=== PATIENT | female | born 1955 | race Caucasian/White ===

== ENCOUNTER → 2019-02-17 | Outpatient (CLI) | payer MEDICARE, MEDICAID ==
[~2019-02-17] MED LIST: ESOMEPRAZOLE MA40 M1 PO; FLUOXETINE HCL20 MG PO; MACROBID 100 M100 MG PO; MAXZIDE-25MG TA1 TAB PO
== END ==
LOC: MAMMO 10:22
DX: Z12.31 Encounter for screening mammogram for malignant neoplasm of breast (principal)

== ENCOUNTER → 2019-03-12 | Outpatient (CLI) | payer MEDICARE, MEDICAID ==
[2019-02-18 14:06] VITALS: BP 127/63
== END ==
LOC: RAD 09:59
DX: R16.1 Splenomegaly, not elsewhere classified (principal); R10.13 Epigastric pain

== ENCOUNTER → 2019-03-24 | Outpatient (CLI) | payer MEDICARE, MEDICAID ==
[2019-02-18 14:06] VITALS: BP 127/63
[2019-03-24 11:11] LABS: EOS # 0.1 (0.04-0.40); EOS % 0.8 % (1.0-5.0); HEMATOCRIT 47.7 % (37.0-47.0); HEMOGLOBIN 15.6 g/dL (12.5-16.0); LYMPH# 1.6 (1.50-4.00); MEAN CELL VOLUME 89 fl (78-100); MEAN CORPUSCULAR HEMOGLOBIN 29 pg (27-31); MEAN CORPUSCULAR HGB CONC 33 g/dL (33-37); MONO # 0.5 (0.20-0.80); NEU # 6.2 (1.40-6.50); PLATELET COUNT 142 K/mm3 (130-400); RED BLOOD COUNT 5.36 M/mm3 (4.10-5.30); RED CELL DISTRIBUTION WIDTH 16.2 % (11.5-14.5); WHITE BLOOD COUNT 8.5 K/mm3 (4.8-10.8)
[2019-03-24 11:23] LABS: ALBUMIN 3.6 g/dL (3.4-4.8)
[2019-03-24 11:24] LABS: CALCIUM 9.5 mg/dL (8.3-10.5)
[2019-03-24 11:25] LABS: TOTAL PROTEIN 9.1 g/dL (6.2-8.1)
[2019-03-24 11:27] LABS: TOTAL BILIRUBIN 0.6 mg/dL (0.2-1.2)
== END ==
LOC: LAB 10:55
DX: K21.9 Gastro-esophageal reflux disease without esophagitis (principal); D64.9 Anemia, unspecified; R10.13 Epigastric pain

== ENCOUNTER → 2019-04-02 | Day surgery (SDC) | payer MEDICARE, MEDICAID ==
[2019-02-18 14:06] VITALS: BP 127/63
== END | disposition home or self-care (01) ==
LOC: MSO 08:12
DX: K21.9 Gastro-esophageal reflux disease without esophagitis (principal); K44.9 Diaphragmatic hernia without obstruction or gangrene; R10.13 Epigastric pain; K63.5 Polyp of colon; J44.9 Chronic obstructive pulmonary disease, unspecified; F17.210 Nicotine dependence, cigarettes, uncomplicated; F41.9 Anxiety disorder, unspecified; Z90.49 Acquired absence of other specified parts of digestive tract; Z90.710 Acquired absence of both cervix and uterus; Z83.71 Family history of colonic polyps
CPT/HCPCS: 00813; J2704; J7120

== ENCOUNTER → 2019-12-25 | Outpatient (CLI) | payer MEDICARE, MEDICAID ==
[2019-02-18 14:06] VITALS: BP 127/63
== END ==
LOC: RAD 08:41
DX: I70.0 Atherosclerosis of aorta (principal); R10.12 Left upper quadrant pain
CPT/HCPCS: Q9965; Q9967

== ENCOUNTER → 2020-05-12 | Day surgery (SDC) | payer MEDICARE, MEDICAID ==
[2019-02-18 14:06] VITALS: BP 127/63
== END ==
LOC: MSO 03-31 10:30
DX: K22.70 Barrett's esophagus without dysplasia (principal); K21.9 Gastro-esophageal reflux disease without esophagitis; K44.9 Diaphragmatic hernia without obstruction or gangrene; F17.210 Nicotine dependence, cigarettes, uncomplicated; Z90.710 Acquired absence of both cervix and uterus
CPT/HCPCS: 00731; J2704; J7120

== ENCOUNTER 2020-12-17 12:55 | Emergency (ER) | payer MEDICARE, MEDICAID ==
[2020-12-17] MEDS ORDERED: GABAPENTIN100 MG PO (13:10)
[2020-12-17] MEDS ORDERED: ATORVASTATIN CA20 MG PO (13:10)
[2020-12-17] MEDS ORDERED: SUCRALFATE1 G1 PO (13:10)
[2020-12-17] MEDS ORDERED: DULOXETINE60 MG PO (13:11)
[2020-12-17] MEDS ORDERED: PROBIOTIC1 EAC1 PO (13:12)
[2020-12-17 14:06] LABS: BASO # 0.03 (0.02-0.10); EOS # 0.06 (0.04-0.40); EOS % 0.9 % (1.0-5.0); HEMATOCRIT 43.6 % (37.0-47.0); HEMOGLOBIN 14.2 g/dL (12.5-16.0); LYMPH# 1.55 (1.50-4.00); MEAN CELL VOLUME 86 fl (78-100); MEAN CORPUSCULAR HEMOGLOBIN 28 pg (27-31); MEAN CORPUSCULAR HGB CONC 33 g/dL (33-37); MEAN PLATELET VOLUME 10.8 fl (7.4-10.4); MONO # 0.38 (0.20-0.80); NEU # 4.36 (1.40-6.50); PLATELET COUNT 129 K/mm3 (130-400); RED BLOOD COUNT 5.07 M/mm3 (4.10-5.30); RED CELL DISTRIBUTION WIDTH 14.6 % (11.5-14.5); WHITE BLOOD COUNT 6.4 K/mm3 (4.8-10.8)
[2020-12-17 14:07] LABS: ALBUMIN 3.5 g/dL (3.4-4.8)
[2020-12-17 14:08] LABS: POTASSIUM 3.9 mmol/L (3.5-5.1); SODIUM 138 mmol/L (136-145)
[2020-12-17 14:09] LABS: CALCIUM 8.8 mg/dL (8.3-10.5)
[2020-12-17 14:10] LABS: GLUCOSE 139 mg/dL (65-105)
[2020-12-17 14:11] LABS: CARBON DIOXIDE 21 mmol/L (23-31)
[2020-12-17 14:12] LABS: TOTAL BILIRUBIN 0.4 mg/dL (0.2-1.2)
[2020-12-17 14:15] LABS: AST-SGOT 28 U/L (5-34)
[2020-12-17 14:17] LABS: ALT/SGPT 19 U/L (0-55)
[2020-12-17] MEDS ORDERED: TRAMADOL 50 MG TAB PO (15:25)
[2020-12-17 15:50] VITALS: BP 160/92
== END 2020-12-17 15:56 | disposition home or self-care (01) ==
LOC: ED 12:55
PROVIDERS: Family Medicine
DX: M47.812 Spondylosis without myelopathy or radiculopathy, cervical region (principal); M54.12 Radiculopathy, cervical region; Z88.6 Allergy status to analgesic agent
CPT/HCPCS: J1885; J2360

== ENCOUNTER → 2021-02-10 | Outpatient (CLI) | payer MEDICARE, MEDICAID ==
[~2021-02-10] MED LIST changes: +ATORVASTATIN CA20 MG PO; +DULOXETINE60 MG PO; +GABAPENTIN100 MG PO; +PROBIOTIC1 EAC1 PO; +SUCRALFATE1 G1 PO; +TRAMADOL 50 MG TAB PO
[2021-02-10 15:23] LABS: BASO # 0.04 (0.02-0.10); EOS # 0.12 (0.04-0.40); EOS % 1.4 % (1.0-5.0); HEMATOCRIT 46.1 % (37.0-47.0); HEMOGLOBIN 15.3 g/dL (12.5-16.0); LYMPH# 1.94 (1.50-4.00); MEAN CELL VOLUME 86 fl (78-100); MEAN CORPUSCULAR HEMOGLOBIN 29 pg (27-31); MEAN CORPUSCULAR HGB CONC 33 g/dL (33-37); MONO # 0.55 (0.20-0.80); NEU # 6.13 (1.40-6.50); PLATELET COUNT 144 K/mm3 (130-400); RED BLOOD COUNT 5.35 M/mm3 (4.10-5.30); RED CELL DISTRIBUTION WIDTH 14.4 % (11.5-14.5); WHITE BLOOD COUNT 8.8 K/mm3 (4.8-10.8)
[2021-02-10 15:32] LABS: ALBUMIN 3.9 g/dL (3.4-4.8)
[2021-02-10 15:33] LABS: CALCIUM 9.4 mg/dL (8.3-10.5)
[2021-02-10 15:34] LABS: TOTAL PROTEIN 8.8 g/dL (6.2-8.1)
[2021-02-10 15:36] LABS: TOTAL BILIRUBIN 0.6 mg/dL (0.2-1.2)
== END ==
LOC: LAB 15:11
PROVIDERS: Family Medicine
DX: Z00.00 Encounter for general adult medical examination without abnormal findings (principal); E78.5 Hyperlipidemia, unspecified; E55.9 Vitamin D deficiency, unspecified

== ENCOUNTER → 2021-02-23 | Outpatient (CLI) | payer MEDICARE, MEDICAID | LOC: RAD 18:08 | DX: M75.52 Bursitis of left shoulder (principal); M75.102 Unspecified rotator cuff tear or rupture of left shoulder, not specified as traumatic ==